=== PATIENT | female | born 1995 | race African-American/Black ===

== ENCOUNTER 2017-02-07 10:43 | Emergency (ER) | payer SELFPAY ==
[2017-02-07 10:47] VITALS: BP 136/78; PULSE 99; RESP 12; TEMP 98.9; O2SAT 99
[2017-02-07] MEDS ORDERED: ZOFR4TAB3 SL (11:32)
--- NOTE | 2017-02-07 11:32 | PD ---
HPI Chief Complaint: GI Complaint Time Seen by Provider: 11:23 Travel History International Travel<30 days: No Contact w/Intl Traveler<30days: No Traveled to known affect area: No History of Present Illness HPI 21-year-old female presents to emergency department with nausea and nonbloody nonbilious vomiting yesterday. Patient is not nauseous today and has not vomited today. Patient states that she was riding in a car and developed carsickness and vomited once. States she normally does not vomit however patient was also not driving. Patient denies fever, chills, chest pain, shortness of breath, abdominal pain, or urinary symptoms. States that she developed allergy symptoms or couple days ago which may have contributed to her symptoms. Patient states that she is here because she wants a doctor's note. She has no other complaints. PFSH Past Medical History Medical History: Denies Significant Hx Influenza Vaccination: No ?: Not LMP: current Past Surgical History Surgical History: No Previous Surgery Social History Alcohol Use: No Tobacco Use: No Substance Use: No Allergies-Medications (Allergen,Severity, Reaction): Coded Allergies: No Known Allergies (Unverified , 02/07/17) Reported Meds & Prescriptions Reported Meds & Active Scripts Active Zofran Odt (Ondansetron Odt) 4 Mg Tab 4 Mg SL Q12HR PRN 3 Days Review of Systems Except as stated in HPI: all other systems reviewed are Neg Physical Exam Narrative GENERAL: Well-nourished, well-developed patient. SKIN: Focused skin assessment warm/dry. HEAD: Normocephalic. EYES: No scleral icterus. No injection or drainage. MOUTH: Mucous membranes moist, no lesions, tongue and gums appear normal. THROAT: No pharyngeal injection, exudates, or tonsillar hypertrophy. Airway is patent. NECK: Supple, trachea midline. No JVD or lymphadenopathy. CARDIOVASCULAR: Regular rate and rhythm without murmurs, gallops, or rubs. RESPIRATORY: Breath sounds equal bilaterally. No accessory muscle use. GASTROINTESTINAL: Abdomen soft, non-tender, nondistended. MUSCULOSKELETAL: No cyanosis, or edema. BACK: Nontender without obvious deformity. No CVA tenderness. Data Data Last Documented VS Vital Signs Date Time Temp Pulse Resp B/P (MAP) Pulse Ox O2 Delivery O2 Flow Rate FiO2 02/07/17 11:58 02/07/17 10:47 98.9 99 12 99 Orders Orders Ed Discharge Order (02/07/17 11:47) MDM Medical Decision Making Medical Screen Exam Complete: Yes Emergency Medical Condition: Yes Differential Diagnosis Carsickness versus allergy symptoms versus upper respiratory infection Narrative Course 21-year-old female presents to emergency department with nausea and nonbloody nonbilious vomiting yesterday. Patient is not nauseous today and has not vomited today. Patient states that she was riding in a car and developed carsickness and vomited once. States she normally does not vomit however patient was also not driving. Patient denies fever, chills, chest pain, shortness of breath, abdominal pain, or urinary symptoms. States that she developed allergy symptoms or couple days ago which may have contributed to her symptoms. Patient states that she is here because she wants a doctor's note. She has no other complaints. Vital signs stable Physical exam unremarkable. Patient wants a doctor's note for her nausea and vomiting yesterday. I give her one for today. Will be discharged with Zofran for car rides. Advised patient that her symptoms are likely result of allergy and existing carsickness problems. Patient was to follow up with primary care physician within 2-3 days. Follow-up emergency department for worsening or persistent symptoms. Diagnosis Primary Impression: Seasonal allergies Qualified Codes: J30.2 - Other seasonal allergic rhinitis Additional Impression: Nausea Referrals: [facility] Additional Instructions: Take medication as prescribed. Follow-up with her primary care physician within 2-3 days. If her symptoms persist or worsen return to the emergency department Scripts Ondansetron Odt (Zofran Odt) 4 Mg Tab 4 MG SL Q12HR Y for Nausea/Vomiting for 3 Days, #10 TAB 0 Refills Prov: Marcella Weinstein MD 02/07/17 Disposition: 01 DISCHARGE HOME Condition: Stable Nupur Lopez Feb 07, 2017 11:32
== END 2017-02-07 12:20 | disposition home or self-care (01) ==
LOC: NEPK 10:43
DX: J30.2 Other seasonal allergic rhinitis (principal); R11.2 Nausea with vomiting, unspecified
CPT/HCPCS: 99283